=== PATIENT | male | born 1960 | race Hispanic/Latino ===

== ENCOUNTER 2017-06-05 12:56 | Emergency (ER) | payer SELFPAY ==
[~2017-06-05] VITALS: Ht 167.6 cm; Wt 81.6 kg
[~2017-06-05 12:56] MED LIST: BACTRIM DS TAB1 EACH PO; CEPHALEXIN500 MG PO; LOSARTAN POTASS25 MG; TERBINAFINE HC250 MG PO
== END 2017-06-05 15:16 | disposition home or self-care (01) ==
LOC: ER 12:56
DX: J02.9 Acute pharyngitis, unspecified (principal); I10 Essential (primary) hypertension; E11.9 Type 2 diabetes mellitus without complications
CPT/HCPCS: 83518; 87070; 99281

== ENCOUNTER 2018-11-16 09:44 | Emergency (ER) | payer OTHER ==
[~2018-11-16] VITALS: Ht 167.6 cm; Wt 81.6 kg
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
--- OUTSIDE RECORDS SUMMARY | 2018-11-16 09:47 | XMS REPORT | Clinical Summary ---
Author Author [facility] Organization [employer] [facility] Address Unknown Phone Unavailable Care Team Providers Care Qa Manager Name Role Phone Asked, No Pcp PCP Unavailable Allergies No Known Allergies Medications Not on file Active Problems Not on file Social History Date Tobacco Use Types Packs/Day Years Used Never Smoker Smokeless Tobacco: Never Used Alcohol Use Drinks/Week oz/Week Comments No Sex Assigned at Date Recorded Not on file Industry Job Start Date Occupation Not on file Not on file Not on file Travel End Travel History Travel Start No recent travel history available. Last Filed Vital Signs Not on file Plan of Treatment Not on file Results Not on fileafter 11/15/2017 Advance Directives Patient has advance care planning documents on file. For more information, bhupinder allan contact: Ankur Pfeiffer [address] [place] [address]
--- OUTSIDE RECORDS SUMMARY | 2018-11-16 09:48 | XMS REPORT | Clinical Summary ---
Author Author [facility] Organization [facility] Address Unknown Phone Unavailable Care Team Providers Care Medical Equipment Sales Name Role Phone PCP Unavailable Allergies No Known Allergies Current Medications Prescription Sig. Disp. Refills Start End Date Status Date amLODIPine (NORVASC) 5 mg Take 5 mg by mouth daily. Active tablet Active Problems Problem Noted Date Throat pain 06/12/2017 Encounters Date Type Specialty Care Team Description 07/07/2017 Telephone Marisol Valdes (elig); Pre-clinic Chart Review 06/29/2017 [facility] Lab Niesha Pacheco MD Throat pain; Encounter Dysphagia, unspecified type; Odynophagia; Suspected malignant neoplasm 06/29/2017 [facility] Radiology Niesha Pacheco MD Throat pain; Encounter Dysphagia, unspecified type; Odynophagia; Suspected malignant neoplasm 06/29/2017 Office Visit Oncology Niesha Pacehco MD Suspected malignant Yenni Lares MD neoplasm (Primary Dx); Throat pain; Dysphagia, unspecified type; Odynophagia 06/29/2017 Telephone Marisol Valdes (new pt appt reminder); Pre-clinic Chart Review 06/12/2017 Emergency Emergency Medicine Radha Cronin PA Throat pain (Primary Dx) after 10/22/2016 Family History Medical History Relation Name Comments Diabetes Brother Hyperlipidemia Brother Hypertension Brother No Known Problems Brother No Known Problems Brother Coronary artery disease Father Heart attack Father Hypertension Father Stroke Maternal Grandfather Coronary artery disease Maternal Grandmother Heart attack Maternal Grandmother Hypertension Maternal Grandmother Alzheimer's disease Mother Hypertension Mother No Known Problems Sister Leukemia Son No Known Problems Son Relation Name Status Comments Brother Alive Brother Alive Brother Alive Father Alive Maternal Grandfather Maternal Grandmother Mother Alive Paternal Grandfather Paternal Grandmother Sister Alive Son Alive Son Alive Social History Tobacco Use Types Packs/Day Years Used Date Never Smoker Smokeless Tobacco: Never Used Alcohol Use Drinks/Week oz/Week Comments No Sex Assigned at Date Recorded Not on file Last Filed Vital Signs Vital Sign Reading Time Taken Blood Pressure 129/82 06/29/2017 7:46 AM CASH SPECIALIST Pulse 72 06/29/2017 7:46 AM CASH SPECIALIST Temperature 36.6 C (97.8 F) 06/29/2017 7:46 AM CASH SPECIALIST Respiratory Rate 17 06/29/2017 7:46 AM CASH SPECIALIST Oxygen Saturation 98% 06/29/2017 7:46 AM CASH SPECIALIST Inhaled Oxygen - - Concentration Weight 66.7 kg (147 lb) 06/29/2017 7:46 AM CASH SPECIALIST Height 167.6 cm (5' 6") 06/29/2017 7:46 AM CASH SPECIALIST Body Mass Index 23.73 06/29/2017 7:46 AM CASH SPECIALIST Plan of Treatment Health Maintenance Due Date Last Done Comments COLORECTAL CANCER SCRN 10/08/2009 ANNUAL (FIT/FOBT) AGE 50 TO 75 Results * COMPREHENSIVE METABOLIC PANEL(DBIL NOT INCLUDED) (06/29/2017 10:45 AM) Component Value Ref Range Albumin 4.0 3.4 - 5.0 g/dL Calcium 9.3 8.50 - 10.20 mg/dL CO2 31 21 - 32 mmol/L Chloride 103 98 - 107 mmol/L Creatinine 0.84 0.60 - 1.30 mg/dL Glucose 107 (H) 70 - 99 mg/dL Alk Phos 62 45 - 117 U/L Potassium 4.7 3.50 - 5.10 mmol/L Sodium 138 136 - 145 mmol/L ALT 27 12 - 78 U/L AST 10 (L) 15 - 37 U/L Urea Nitrogen 15 7 - 18 mg/dL T Bilirubin 0.6 0.2 - 1.0 mg/dL T Protein 6.7 6.4 - 8.2 g/dL GFR, Estimated >60 mL/min/1.73 m2 GFR, Estim, Afr-Am >60 mL/min/1.73 m2 Anion Gap 4 Specimen Performing Laboratory Blood MISYS * CBC/DIFF (06/29/2017 10:45 AM) Component Value Ref Range WBC 5.4 4.5 - 12.0 K/uL RBC 4.71 4.60 - 6.20 M/uL Hemoglobin 14.3 14.0 - 18.0 g/dL Hematocrit 43.4 40.0 - 54.0 % MCV 92 82 - 92 fL MCH 30.4 27.0 - 31.0 pg MCHC 32.9 32.0 - 36.0 g/dL RDW 45.3 (H) 35.1 - 43.9 fL Platelet 134 (L) 150 - 400 K/uL Mean Platelet Volume 11.3 9.4 - 12.4 fL Percent NRBC 0.0 Absolute NRBC 0.00 Neutrophil 64.5 34.0 - 67.9 % Lymphocyte 24.6 21.8 - 50.0 % Monocyte 7.6 5.3 - 12.0 % Eosinophil 2.4 0.8 - 5.0 % Basophil 0.7 0.2 - 1.2 % Pct Immat Gran 0.2 0.0 - 0.5 Neutrophil, Abs 3.49 1.78 - 5.36 K/uL Lymphocyte, Abs 1.33 1.32 - 3.57 K/uL Monocyte, Abs 0.41 0.30 - 0.82 K/uL Eosinophil, Abs 0.13 0.04 - 0.54 K/uL Basophil, Abs 0.04 0.01 - 0.08 K/uL Absol Immat Gran 0.01 0.00 - 0.03 K/uL Specimen Performing Laboratory Blood MISYS * XRAY CHEST 2 VIEWS (06/29/2017 10:20 AM) Specimen Performing Laboratory SMS Impressions IMPRESSION: No acute cardiopulmonary abnormality. Dictated By: Sung Camara MD, 06/29/2017 11:37 AM I have reviewed the study and agree with the findings in this report. Signed By: Deyvi Anthony MD, 06/29/2017 12:23 PM Narrative EXAM: XR CHEST 2 VIEWS DATE: 06/29/2017 10:43 AM INDICATION: SOB, chest pain. Throat pain COMPARISON: None TECHNIQUE: PA and lateral chest radiographs FINDINGS: Lines, tubes and hardware: None. Lungs and pleura: No pulmonary or pleural based abnormality is identified. Pulmonary vascularity is normal. Heart and mediastinum: The heart size is normal for technique.The aorta is tortuous. Bones: No acute bony abnormality is identified. Procedure Note Interface, Rad/Mammog In - 06/29/2017 12:28 PM CASH SPECIALIST EXAM: XR CHEST 2 VIEWS DATE: 06/29/2017 [...] By: Deyvi Anthony MD, 06/29/2017 12:23 PM * GLUCOSE POC (06/12/2017 3:57 AM) Component Value Ref Range Glucose POC 121 (H) 74 - 106 mg/dL Specimen Performing Laboratory MISYS after 10/22/2016
--- OUTSIDE RECORDS SUMMARY | 2018-11-16 09:48 | XMS REPORT | Summary of Care ---
Author Author [facility] Organization [facility] Address Unknown Phone Unavailable Encounter BALWINDER Rehman(DAIJA) [id number] Date(s): 09/23/16 - 09/23/16 [facility] [address] [employer] provided by [facility] [place] [address]- Discharge Diagnosis: Lower back pain Discharge Disposition: Home or Self Care Attending Physician: Zenobia Diaz MD Vital Signs Most recent to 1 2 oldest [Reference Range]: Temperature Oral 97.9 DegF 98.0 DegF [96.4-99.1 DegF] (09/23/16 1:55 PM) (09/23/16 10:34 AM) Blood Pressure 165/88 mmHg 190/109 mmHg [90-140/60-90 mmHg] *HI* *HI* (09/23/16 1:55 PM) (09/23/16 10:34 AM) Respiratory Rate 15 BRMIN 16 BRMIN [14-20 BRMIN] (09/23/16 1:55 PM) (09/23/16 10:34 AM) Peripheral Pulse 88 bpm 102 bpm Rate [60-100 bpm] (09/23/16 1:55 PM) *HI* (09/23/16 10:34 AM) Problem List Condition Effective Dates Status Health Status Informant DM (diabetes Active mellitus)(Confirmed) HTN Resolved (hypertension)(Confi rmed) Allergies, Adverse Reactions, Alerts Substance Reaction Severity Status morphine Active Medications acetaminophen-hydrocodone 325 mg-5 mg oral tablet 1 tab, Route: PO, Drug Form: TAB, Dosing Weight 81.818, kg, ONCE, STAT, Start da te: 09/23/16 10:50:00 CDT, Stop date: 09/23/16 10:50:00 CDT Start Date: 09/23/16 Stop Date: 09/23/16 Status: Completed Flexeril 10 mg oral tablet 10 mg, PO, BID, PRN Muscle Spasm, Will make you sleepy, X 5 day, # 10 tab, 0 Ref ill(s) Start Date: 09/23/16 Stop Date: 09/28/16 Status: Ordered Motrin 800 mg, Route: PO, Drug form: TAB, ONCE, Dosing Weight 81.818, kg, Priority: STA T, Start date: 09/23/16 10:50:00 CDT, Stop date: 09/23/16 10:50:00 CDT Start Date: 09/23/16 Stop Date: 09/23/16 Status: Completed Motrin 800 mg oral tablet 800 mg=1 tab, PO, Q8H, PRN Pain, Take with food, # 30 tab, 0 Refill(s) Start Date: 09/23/16 Status: Ordered [place] 5/325 oral tablet 1 tab, Route: PO, Drug Form: TAB, Dosing Weight 81.818, kg, ONCE, STAT, Start da te: 09/23/16 13:12:00 CDT, Stop date: 09/23/16 13:12:00 CDT Start Date: 09/23/16 Stop Date: 09/23/16 Status: Completed Results No data available for this section Immunizations No data available for this section Procedures No data available for this section Social History Social History Type Response Smoking Status Never smoker; Exposure to Tobacco Smoke None; Cigarette Smoking Last 365 Days No; Reg Smoking Cessation Counseling No Assessment and Plan No data available for this section
--- OUTSIDE RECORDS SUMMARY | 2018-11-16 09:48 | XMS REPORT | Clinical Summary ---
Author Author [facility] Organization [facility] Address Unknown Phone Unavailable Care Team Providers Care Tool Mechanic Name Role Phone PCP Unavailable Allergies No Known Allergies Current Medications Prescription Sig. Disp. Refills Start End Date Status Date amLODIPine (NORVASC) 5 mg Take 5 mg by mouth daily. Active tablet Active Problems Problem Noted Date Throat pain 06/12/2017 Encounters Date Type Specialty Care Team Description 07/07/2017 Telephone Marisol Valdes (elig); Pre-clinic Chart Review 06/29/2017 [facility] Lab Niesha Pacheco MD Throat pain; Encounter Dysphagia, unspecified type; Odynophagia; Suspected malignant neoplasm 06/29/2017 [facility] Radiology Niesha Pacheco MD Throat pain; Encounter Dysphagia, unspecified type; Odynophagia; Suspected malignant neoplasm 06/29/2017 Office Visit Oncology Niesha Pacheco MD Suspected malignant Yenni Lares MD neoplasm (Primary Dx); Throat pain; Dysphagia, unspecified type; Odynophagia 06/29/2017 Telephone Marisol Valdes (new pt appt reminder); Pre-clinic Chart Review 06/12/2017 Emergency Emergency Medicine Radha Cronin PA Throat pain (Primary Dx) after 10/21/2016 Family History Medical History Relation Name Comments [...] Taken Blood Pressure 129/82 06/29/2017 7:46 AM LICENSED PSYCHOLOGIST MANAGER Pulse 72 06/29/2017 7:46 AM LICENSED PSYCHOLOGIST MANAGER Temperature 36.6 C (97.8 F) 06/29/2017 7:46 AM LICENSED PSYCHOLOGIST MANAGER Respiratory Rate 17 06/29/2017 7:46 AM LICENSED PSYCHOLOGIST MANAGER Oxygen Saturation 98% 06/29/2017 7:46 AM LICENSED PSYCHOLOGIST MANAGER Inhaled Oxygen - - Concentration Weight 66.7 kg (147 lb) 06/29/2017 7:46 AM LICENSED PSYCHOLOGIST MANAGER Height 167.6 cm (5' 6") 06/29/2017 7:46 AM LICENSED PSYCHOLOGIST MANAGER Body Mass Index 23.73 06/29/2017 7:46 AM LICENSED PSYCHOLOGIST MANAGER Plan of Treatment Health Maintenance Due Date [...] Interface, Rad/Mammog In - 06/29/2017 12:28 PM LICENSED PSYCHOLOGIST MANAGER EXAM: XR CHEST 2 VIEWS DATE: 06/29/2017 [...] 106 mg/dL Specimen Performing Laboratory [facility] after 10/21/2016
--- OUTSIDE RECORDS SUMMARY | 2018-11-16 09:49 | XMS REPORT | Clinical Summary ---
Author Author [facility] Organization [facility] Address Unknown Phone Unavailable Care Team Providers Care Manager Track Name Role Phone PCP Unavailable Allergies No Known Allergies Current Medications Prescription Sig. Disp. Refills Start End Date Status Date amLODIPine (NORVASC) 5 mg Take 5 mg by mouth daily. Active tablet Active Problems Problem Noted Date Throat pain 06/12/2017 Encounters Date Type Specialty Care Team Description 07/07/2017 Telephone Marisol Valdes (elig); Pre-clinic Chart Review 06/29/2017 [facility] Lab Niesha Pacheco MD Throat pain; Encounter Dysphagia, unspecified type; Odynophagia; Suspected malignant neoplasm 06/29/2017 [facility] Radiology Niesha Pacheco MD Throat pain; Encounter Dysphagia, unspecified type; Odynophagia; Suspected malignant neoplasm 06/29/2017 Office Visit Oncology Niesha Pacheco MD Suspected malignant Yenni Lares MD neoplasm (Primary Dx); Throat pain; Dysphagia, unspecified type; Odynophagia 06/29/2017 Telephone Marisol Valdes (new pt appt reminder); Pre-clinic Chart Review 06/12/2017 Emergency Emergency Medicine Radha Cronin PA Throat pain (Primary Dx) after 10/30/2016 Family History Medical History Relation Name Comments [...] Taken Blood Pressure 129/82 06/29/2017 7:46 AM NEUROSURGICAL NURSE PRACTITIONER Pulse 72 06/29/2017 7:46 AM NEUROSURGICAL NURSE PRACTITIONER Temperature 36.6 C (97.8 F) 06/29/2017 7:46 AM NEUROSURGICAL NURSE PRACTITIONER Respiratory Rate 17 06/29/2017 7:46 AM NEUROSURGICAL NURSE PRACTITIONER Oxygen Saturation 98% 06/29/2017 7:46 AM NEUROSURGICAL NURSE PRACTITIONER Inhaled Oxygen - - Concentration Weight 66.7 kg (147 lb) 06/29/2017 7:46 AM NEUROSURGICAL NURSE PRACTITIONER Height 167.6 cm (5' 6") 06/29/2017 7:46 AM NEUROSURGICAL NURSE PRACTITIONER Body Mass Index 23.73 06/29/2017 7:46 AM NEUROSURGICAL NURSE PRACTITIONER Plan of Treatment Health Maintenance Due Date [...] Interface, Rad/Mammog In - 06/29/2017 12:28 PM NEUROSURGICAL NURSE PRACTITIONER EXAM: XR CHEST 2 VIEWS DATE: 06/29/2017 [...] 106 mg/dL Specimen Performing Laboratory [facility] after 10/30/2016
--- OUTSIDE RECORDS SUMMARY | 2018-11-16 09:49 | XMS REPORT ---
[facility] Address Unknown Phone Unavailable Care Team Providers Care Orthotist/Prosthetist Name Role Phone Unavailable Unavailable Payers Payer Name Policy Type Policy Number Effective Date Expiration Date Problems This patient has no known problems. Allergies, Adverse Reactions, Alerts Allergy Name Allergy Type Status Severity Reaction(s) Onset Date Inactive Date Treating Clinician Comments morphine DA Active SV 2017-03-26 00:00:00 Medications This patient has no known medications. Encounters Start Date/Time End Date/Time Encounter Type Admission Type Attending Clinicians [facility] Facility Care Department Encounter ID 2017-07-27 00:00:00 2017-07-27 00:00:00 Outpatient [facility] [id number] 2017-07-13 00:00:00 2017-07-13 00:00:00 Outpatient [facility] [id number] 2017-06-29 10:45:13 2017-06-29 10:45:13 Outpatient [facility] [id number] 2017-06-29 10:18:33 2017-06-29 10:18:33 Outpatient [facility] [id number] 2017-06-29 07:46:19 2017-06-29 07:46:19 Outpatient [facility] [id number] 2017-06-12 02:36:05 2017-06-12 02:36:05 Emergency [facility] [id number] Results Test Description Test Time Test Comments Text Results Atomic Results Result Comments - XR L-SPINE 2/3 VIEWS 2018-11-10 05:36:00 FAX: Glen Huerta MD [phone] [place]: St: [facility] FAX: Sofía Campbell NP [phone] Name: [facility] Joey Mullins : 1960 Age/S: 58/M [address] [place] [address] Unit #: [id number] Loc: [address] [place] [id number] Phys: Sofía Campbell NP Acct: [id number] Dis Date: Status: REG ER PHONE #: [phone] Exam Date: 11/10/2018517 FAX #: [phone] Reason: lumbar back pain EXAMS: CPT CODE: [id number] XR L-SPINE 2/3 VIEWS [id number] EXAM: CR, XR L-SPINE 2/3 VIEWS: 11/10/2018, 0511 hours HISTORY: Lumbar back pain. COMPARISON: None. FINDINGS: Frontal and lateral radiograph of the lumbar spine are submitted. 5 nonrib- bearing lumbar type vertebral bodies are present. There is normal alignment and height of the lumbar spine vertebral body. Multilevel intervertebral disc space narrowing and marginal spurs are noted, worst at L4-L5 and L5-S1. Posterior element degenerative changes in the lumbar spine. Suspect developmental canal stenosis. Visualized femoral head are within the acetabulum. Sacroiliac joints are unremarkable. Surgical clips are noted in the right pelvis. No acute fracture or dislocation seen in the lumbar spine. If indicated, follow-up radiograph or MRI can be obtained for complete assessment IMPRESSION: 1. No acute fracture or dislocation of the lumbar spine seen. 2. Mild to moderate degenerative changes in the lumbar spine. [id number] at 0536 Reported and signed by: Tommy Schwartz M.D. CC: Glen Snyder MD; Sofía Campbell NP Technologist: RT Mya(R) Trnscrd Date/Time/By: 11/10/2018 (0536) : By: [email or web address] Orig Print D/T: S: 11/10/2018 (0541) PAGE 1 Signed Report
[2018-11-16] MEDS ORDERED: VALIUM2 MG PO (10:06)
[2018-11-16] MEDS ORDERED: PREDNISONE20 MG PO (10:06)
[2018-11-16] MEDS ORDERED: NAPROXEN250 MG PO (10:06)
[2018-11-16] MEDS ORDERED: DIAZEPAM 2 MG TAB PO ONE (10:15)
[2018-11-16] MEDS ORDERED: KETOROLAC TROMETHAMINE 60 MG/2 ML VIAL IM ONE (10:15)
[2018-11-16] MEDS ORDERED: DIAZEPAM 5 MG TAB PO ONE (11:00)
== END 2018-11-16 12:31 | disposition home or self-care (01) ==
LOC: ER 09:44
DX: M54.5 Low back pain (principal)
CPT/HCPCS: 99283; J1885